=== PATIENT | male | born 1960 | race Caucasian/White ===

== ENCOUNTER 2023-07-19 09:45 | Outpatient (RCR) | payer BC, OTHER, SELFPAY | END 2023-10-02 12:35 | disposition home or self-care (01) | PROVIDERS: PCP Family Medicine; Visit Provider Family Medicine | DX: S79.921A Unspecified injury of right thigh, initial encounter (principal); M62.81 Muscle weakness (generalized); R26.2 Difficulty in walking, not elsewhere classified; M79.651 Pain in right thigh; Z51.89 Encounter for other specified aftercare | CPT/HCPCS: 97110; 97161 ==

== ENCOUNTER 2024-10-08 13:05 | Outpatient (CLI) | payer BC, SELFPAY | END 2024-10-08 13:06 | disposition home or self-care (01) | LOC: INJ CL 13:07 | PROVIDERS: PCP Family Medicine; Visit Provider Family Medicine | DX: M54.16 Radiculopathy, lumbar region (principal); M51.26 Other intervertebral disc displacement, lumbar region | CPT/HCPCS: 64483; J1100; Q9966 ==